=== PATIENT | male | born 1960 | race Caucasian/White ===

== ENCOUNTER 2021-10-21 19:23 | Emergency (ER) | payer BC, SELFPAY ==
--- NOTE | ~2021-10-21 | XR_ITS ---
EXAMINATION: XR HAND, RIGHT CLINICAL INFORMATION: Post reduction of PIP of right third finger COMPARISON: 10/21/2021 TECHNIQUE: PA, lateral, and oblique views of the right hand. FINDINGS: Reduction of the prior dislocation at the third digit proximal interphalangeal joint. Alignment is anatomic. Joint spaces are maintained. No associated fracture. Corticated ossific density at the dorsal aspect of the proximal interphalangeal joint of the second digit. A ring is in place on the fourth digit. Advanced degenerative changes of the first carpometacarpal joint. XR/XR hand RT 2V IMPRESSION: Reduction of the third digit proximal interphalangeal joint dislocation with appropriate alignment. No acute fractures seen. Degenerative changes.
--- NOTE | ~2021-10-21 | XR_ITS ---
EXAMINATION: LEFT SHOULDER, RIGHT HAND CLINICAL INFORMATION: Fall with shoulder and hand pain COMPARISON: None TECHNIQUE: 3 views left shoulder, 3 views left hand FINDINGS: Left shoulder: No fractures or dislocations are seen. Minimal degenerative changes present at the AC joint. Right hand: There is dorso-lateral dislocation at the PIP joint of the third digit. No fracture is detected. Incidentally noted degenerative changes at the first metacarpal carpal joint. XR/XR shoulder LT min 2V IMPRESSION: 1. No evidence of a left shoulder injury 2. Dislocation PIP joint third digit without fracture
--- NOTE | ~2021-10-21 | CT_ITS ---
EXAMINATIONS: CT HEAD WITHOUT CONTRAST AND CT CERVICAL SPINE WITHOUT CONTRAST CLINICAL INFORMATION: Fall with head injury and neck pain COMPARISON: None TECHNIQUE: Contiguous helical images of the brain were obtained without IV contrast. Contiguous helical images of the cervical spine were obtained without IV contrast. Multiplanar reconstructions were performed. This CT examination was performed using dose optimization techniques as appropriate, variously including the following: *Automated exposure control *Adjustment of mA and/or kV according to patient size (this includes techniques or standardized protocols for targeted exams where dose is matched to indication/reason for exam; i.e. extremities or head) *Use of iterative reconstruction technique DLP: 1374 mGy-cm. FINDINGS: There is no evidence of acute hemorrhage or evolving territorial infarct. No extra-axial collections are identified. No mass effect or midline shift. There is no ventriculomegaly. There is no abnormal attenuation of the brain parenchyma. Left frontal scalp contusion. No skull fracture identified. Opacification of the left frontal and anterior ethmoid sinuses. The mastoid air cells are underpneumatized, without effusion. There is an old nasal bone fracture with deformity. There is no evidence of acute cervical spine fracture. The cervical vertebra are in normal alignment. Disc heights and vertebral heights are well-preserved. Mild multilevel facet arthropathy. There is no prevertebral soft tissue swelling. The visualized lung apices are clear. CT/CT cervical spine wo con IMPRESSION: No evidence for acute intracranial injury. Left frontal scalp contusion. No evidence of skull fracture. No acute fracture or traumatic subluxation of the cervical spine. Inflammatory paranasal sinus disease.
--- NOTE | ~2021-10-21 | CT_ITS ---
EXAMINATIONS: CT HEAD WITHOUT CONTRAST AND CT CERVICAL SPINE WITHOUT CONTRAST CLINICAL INFORMATION: Fall with head injury and neck pain COMPARISON: None TECHNIQUE: Contiguous helical images of the brain were obtained without IV contrast. Contiguous helical images of the cervical spine were obtained without IV contrast. Multiplanar reconstructions were performed. This CT examination was performed using dose optimization techniques as appropriate, variously including the following: *Automated exposure control *Adjustment of mA and/or kV according to patient size (this includes techniques or standardized protocols for targeted exams where dose is matched to indication/reason for exam; i.e. extremities or head) *Use of iterative reconstruction technique DLP: 1374 mGy-cm. FINDINGS: There is no evidence of acute hemorrhage or evolving territorial infarct. No extra-axial collections are identified. No mass effect or midline shift. There is no ventriculomegaly. There is no abnormal attenuation of the brain parenchyma. Left frontal scalp contusion. No skull fracture identified. Opacification of the left frontal and anterior ethmoid sinuses. The mastoid air cells are underpneumatized, without effusion. There is an old nasal bone fracture with deformity. There is no evidence of acute cervical spine fracture. The cervical vertebra are in normal alignment. Disc heights and vertebral heights are well-preserved. Mild multilevel facet arthropathy. There is no prevertebral soft tissue swelling. The visualized lung apices are clear. CT/CT head/brain wo con IMPRESSION: No evidence for acute intracranial injury. Left frontal scalp contusion. No evidence of skull fracture. No acute fracture or traumatic subluxation of the cervical spine. Inflammatory paranasal sinus disease.
--- NOTE | ~2021-10-21 | XR_ITS ---
EXAMINATION: LEFT SHOULDER, RIGHT HAND CLINICAL INFORMATION: Fall with shoulder and hand pain COMPARISON: None TECHNIQUE: 3 views left shoulder, 3 views left hand FINDINGS: Left shoulder: No fractures or dislocations are seen. Minimal degenerative changes present at the AC joint. Right hand: There is dorso-lateral dislocation at the PIP joint of the third digit. No fracture is detected. Incidentally noted degenerative changes at the first metacarpal carpal joint. XR/XR hand RT min 3V IMPRESSION: 1. No evidence of a left shoulder injury 2. Dislocation PIP joint third digit without fracture
[2021-10-21 19:58] VITALS: BP 183/111; BP 190/140; PULSE 88; PULSE 96; TEMP 37; O2SAT 95; O2SAT 96; BMI 24.3
--- NOTE | 2021-10-21 20:12 | ED.FALL ---
HPI - Fall General Chief Complaint: Fall Stated Complaint: fall (+blood thinner/+head strike) Time Seen by Provider: 10/21/21 20:06 Source: patient and EMS Mode of arrival: EMS Limitations: no limitations History of Present Illness HPI Narrative: 61-year-old male came in for evaluation of mechanical fall. Patient tripped and fell forward hitting his forehead, declined LOC, patient also is complaining of left shoulder pain and right hand pain. Patient is taking aspirin daily but no blood thinner therapy.. Patient clearly declined feeling dizzy, chest pain, or lightheaded before the fall. Related Data Previous Rx's Medication Instructions Recorded amlodipine 5 mg tablet 5 mg PO DAILY #30 tab 10/21/21 Allergies Allergy/AdvReac Type Severity Reaction Status Date / Time No Known Allergies Allergy Verified 10/21/21 20:08 Review of Systems Review of Systems: All other systems are reviewed and are negative Constitutional: Reports as per HPI and Reports no additional constitutional complaints Eyes: Reports as per HPI and Reports no additional eye complaints Reports system reviewed and no additional complaints, except as documented Cardiovascular: Reports as per HPI and Reports no additional cardiovascular complaints Respiratory: Reports as per HPI and Reports no additional respiratory complaints Gastrointestinal: Reports as per HPI and Reports no additional gastrointestinal complaints Genitourinary: Reports no additional female genitourinary complaints Musculoskeletal: Reports no additional musculoskeletal complaints Skin/Breast: Reports system reviewed and no additional complaints, except as docu Psychiatric: Reports no additional psychiatric complaints Endocrine: Reports no additional endocrine complaints Hematologic/Lymphatic: Reports no additional hematologic/lymphatic complaints Allergic/Immunologic: Reports no additional allergic/immunologic complaints Reports system reviewed and no additional complaints, except as documented and Reports Abnormal speech present [facility] Social History Social History Advance Directives: No Advance Directives Information Provided: Yes Physical Exam Vital Signs: Vital Signs: Last Vital Signs Temp 98.6 F 10/21/21 19:58 Pulse 89 10/21/21 22:07 BP 177/109 H 10/21/21 22:07 Pulse Ox 95 10/21/21 19:58 BMI result Body Mass Index 24.3 Vital signs have been reviewed as appeared to be correct. Blood pressure elevated. Heart rate normal. Respiration rate normal. Temperature normal. Oxygen saturation normal. Appearance: Alert. Oriented X3. No acute distress. Head: Normal external exam. Normocephalic. Atraumatic. No Zavala signs noted. No raccoon eyes noted, left forehead small contusion parent Eyes: PERRLA. EOMI. Conjunctiva and sclera normal. Eyelids normal. ENT: TM's Normal. Pharynx normal. Uvula midline. Moist mucous membranes. No trismus noted. No drooling noted. No muffled voice noted. Neck: Normal inspection. Neck supple. FROM. No adenopathy. Thyroid Normal. No meningeal signs. No neck mass noted. CVS: Normal heart rate and rhythm. Heart sound normal. No murmurs noted. Pulses normal throughout. Respiratory: No respiratory distress. Painless inspiration. Breath sounds normal. No wheezes/rales/rhonchi noted. Chest nontender. No accessory muscle usage noted or decreased air movement noted. Abdomen: Soft and nontender. Bowel sounds normal in all 4 quadrants. No distention noted. No organomegaly noted. No visible injury noted. Back: No CVA tenderness. Full range of motion noted. Skin: Skin warm and dry. Normal skin color. Normal skin turgor. No rashes/lesions/lacerations noted. Extremities: Left shoulder exam: Mild tenderness to touch, no deformity, no step-off, for range of motion. Right hand exam right middle finger interphalangeal dislocation. Neuro: Oriented X 3. Cranial nerve exam: II-XII are grossly intact No motor deficit. No sensory deficit. Reflexes normal. Course Course Course Narrative: Assessment and plan. 61-year-old male status post mechanical fall, right middle finger PIP dislocation and status post reduction. Patient do not normally follow with PCP found to have high blood pressure that is asymptomatic, patient responded well to amlodipine while in the emergency department. Will discharge the patient on amlodipine 5 mg daily to follow-up with his PCP for further hypertension routine follow-up. Procedures Orthopedic Joint Reduction Joint #1: Time Out Performed: Yes Side: right Joint Reduction Location: other (Right 3rd PIP) Technique used: traction/counter-traction Post-reduction neuro exam: intact Post-reduction vascular: intact Post Reduction X-Ray Obtained: Yes Post Reduction X-Ray Results: reduced Splint Applied: No Patient Tolerated Procedure: well MDM - Fall Imaging Data Cervical spine CT: Attestation: I personally reviewed and interpreted this imaging study as follows: Radiologist's impression: No acute fracture or traumatic subluxation of the cervical spine. ? Inflammatory paranasal sinus disease. CT scan - head: Attestation: I personally reviewed and interpreted this imaging study as follows: Radiologist's impression: No evidence for acute intracranial injury. ? Left frontal scalp contusion. No evidence of skull fracture. Right hand x-ray: Attestation: I personally reviewed and interpreted this imaging study as follows: Radiologist's impression: Reduction of the third digit proximal interphalangeal joint dislocation with appropriate alignment. No acute fractures seen. Degenerative changes. Left shoulder x-ray: Attestation: I personally reviewed and interpreted this imaging study as follows: Radiologist's impression: No acute fracture or dislocation. Discharge Plan Discharge Clinical Impression: Fall, Dislocation of proximal interphalangeal joint of right middle finger, Closed head injury, Hypertension Patient Disposition: Home, Self-Care Instructions: Head Injury (ED) Additional Instructions: With close monitoring to her blood pressure, You found to have high blood pressure in the emergency department. You were prescribed medication to help controlling your blood pressure as an outpatient but she need to follow up with your primary doctor for refilling your medication and you need a workup for newly diagnosed hypertension. Prescriptions: New amlodipine 5 mg tablet 5 mg PO DAILY Qty: 30 RF: 0 Referrals: Physician,Unknown J [Primary Care Provider] - 2 days
[2021-10-21 21:34] VITALS: BP 216/145; PULSE 99
[2021-10-21 22:07] VITALS: BP 177/109; PULSE 89
[2021-10-21] MEDS: amLODIPine Besylate 10 MG TABLET PO (22:07)
== END 2021-10-21 23:34 | disposition home or self-care (01) ==
PROVIDERS: Emergency Provider Emergency Medicine
DX: S63.282A Dislocation of proximal interphalangeal joint of right middle finger, initial encounter (principal); S09.90XA Unspecified injury of head, initial encounter; M54.2 Cervicalgia; I10 Essential (primary) hypertension; Z79.82 Long term (current) use of aspirin; W18.30XA Fall on same level, unspecified, initial encounter; Y93.9 Activity, unspecified; Y92.9 Unspecified place or not applicable; Y99.9 Unspecified external cause status
CPT/HCPCS: 26770; 70450; 72125; 73030; 73120; 73130; 99283; 99284